=== PATIENT | female | born 1990 | race Caucasian/White ===

== ENCOUNTER → 2017-08-14 | Outpatient (REF) | payer OTHER | LOC: M SFHCLERA 16:05 | DX: R10.9 Unspecified abdominal pain (principal) ==

== ENCOUNTER 2017-08-15 21:17 | Emergency (ER) | payer OTHER ==
[2017-08-15] MEDS: NS 1,000 ML IV (22:43)
[2017-08-15 22:48] LABS: CONTROL LINE UCG INT CTR LINE PRESENT; URINE PREG TEST NEGATIVE (NEGATIVE)
[2017-08-15 22:52] LABS: KETONE, URINE AUTO RFX TRACE mg/dL (NEGATIVE); LEUKOCYTE ESTERASE UR AUTO RFX NEGATIVE (NEGATIVE); MUCUS, URINE RFX SMALL (NEGATIVE); NITRITE, URINE AUTO RFX NEGATIVE (NEGATIVE); RBC, URINE AUTO RFX TNTC /HPF (0-3); SPECIFIC GRAVITY UR AUTO RFX 1.019 (1.002-1.035); SQUAM EPITHELIAL CELL UR AURFX 5 /HPF (0-6); WBC, URINE AUTO RFX 12 /HPF (0-3)
[2017-08-15 23:14] LABS: BASO # 0.1 10^3/uL (0.0-0.2); BASO % 0.5 % (0.0-1.0); EOS # 0.1 10^3/uL (0.0-0.50); EOS % 0.4 % (0.0-3.0); HEMATOCRIT 38.8 % (36.0-47.0); HEMOGLOBIN 13.3 g/dl (12.0-15.5); IMMATURE GRANULOCYTE % 0.5 % (0-3.0); LYMPH # 2.5 10^3/uL (1.5-6.5); LYMPH % 16.8 % (24.0-44.0); MEAN CORPUSCULAR HEMOGLOBIN 31.7 pg (27.0-33.0); MEAN CORPUSCULAR HGB CONC 34.3 g/dl (32.0-36.5); MEAN CORPUSCULAR VOLUME 92.6 fl (80.0-96.0); MONO # 1.4 10^3/uL (0.0-0.8); MONO % 9.6 % (0.0-5.0); NEUTROPHILS # 10.6 10^3/uL (1.8-7.7); NEUTROPHILS % 72.2 % (36.0-66.0); PLATELET COUNT, AUTOMATED 198 10^3/uL (150-450); RED BLOOD COUNT 4.19 10^6/uL (4.00-5.40); RED CELL DISTRIBUTION WIDTH 12.9 % (11.5-14.5); WHITE BLOOD COUNT 14.7 10^3/uL (4.0-10.0)
[2017-08-15 23:49] LABS: ALT/SGPT 52 U/L (12-78); ANION GAP 7 MEQ/L (8-16); BLOOD UREA NITROGEN 8 MG/DL (7-18); CALCIUM LEVEL 8.3 MG/DL (8.5-10.1); CARBON DIOXIDE LEVEL 28 MEQ/L (21-32); CHLORIDE LEVEL 104 MEQ/L (98-107); GLOMERULAR FILTRATION RATE > 60.0 (>60); GLUCOSE, FASTING 131 MG/DL (70-100); POTASSIUM SERUM 3.6 MEQ/L (3.5-5.1); SODIUM LEVEL 139 MEQ/L (136-145)
[2017-08-15 23:50] LABS: ALBUMIN 3.3 GM/DL (3.2-5.2); ALBUMIN/GLOBULIN RATIO 0.92 (1.00-1.93); AMYLASE 22 U/L (25-115); BILIRUBIN,DIRECT 0.2 MG/DL (0.0-0.2); BILIRUBIN,TOTAL 0.8 MG/DL (0.2-1.0); LIPASE 84 U/L (73-393); TOTAL PROTEIN 6.9 GM/DL (6.4-8.2)
[2017-08-15 23:51] LABS: ALKALINE PHOSPHATASE 82 U/L (45-117)
[2017-08-15 23:59] LABS: AST/SGOT 21 U/L (7-37)
[2017-08-16] MEDS ORDERED: ISOVUE-370 76% 100ML VIAL (Q9967) As Ordered (00:10)
== END 2017-08-16 01:19 | disposition home or self-care (01) ==
LOC: M ED 08-16 01:19
DX: N83.201 Unspecified ovarian cyst, right side (principal)
CPT/HCPCS: Q9967

== ENCOUNTER → 2017-09-10 | Outpatient (CLI) | payer OTHER ==
[~2017-09-10] MED LIST: PROHANCE 279.3MG/ML 15ML VIAL (A9576) As Ordered; PROHANCE 279.3MG/ML 5ML VIAL (A9576) As Ordered
== END ==
LOC: M RAD 17:13
DX: N83.9 Noninflammatory disorder of ovary, fallopian tube and broad ligament, unspecified (principal)

== ENCOUNTER → 2017-10-18 | Outpatient (CLI) | payer OTHER | LOC: M SLEEP 19:44 | DX: G47.33 Obstructive sleep apnea (adult) (pediatric) (principal) | CPT/HCPCS: 95810 ==

== ENCOUNTER → 2017-11-14 | Outpatient (CLI) | payer OTHER | LOC: M SLEEP 20:00 | DX: G47.33 Obstructive sleep apnea (adult) (pediatric) (principal) | CPT/HCPCS: 95811 ==

== ENCOUNTER 2017-11-17 06:39 | Day surgery (SDC) | payer OTHER ==
[~2017-11-17 06:39] MED LIST changes: +LIDOCAINE 1% MDV 20ML VIAL SQ; -PROHANCE 279.3MG/ML 15ML VIAL (A9576) As Ordered; -PROHANCE 279.3MG/ML 5ML VIAL (A9576) As Ordered
[2017-11-17 07:10] LABS: HEMATOCRIT 43.8 % (36.0-47.0); HEMOGLOBIN 14.4 g/dl (12.0-15.5); MEAN CORPUSCULAR HEMOGLOBIN 30.9 pg (27.0-33.0); MEAN CORPUSCULAR HGB CONC 32.9 g/dl (32.0-36.5); PLATELET COUNT, AUTOMATED 223 10^3/uL (150-450); RED BLOOD COUNT 4.66 10^6/uL (4.00-5.40); RED CELL DISTRIBUTION WIDTH 12.6 % (11.5-14.5); WHITE BLOOD COUNT 5.9 10^3/uL (4.0-10.0)
[2017-11-17] MEDS: BUPIVACAINE HCL 0.5% 10 ML VIAL As Ordered (07:10)
[2017-11-17] MEDS: ACETAMINOPHEN 650 MG SUPP As Ordered (07:11)
[2017-11-17] MEDS ORDERED: PROPOFOL 200 MG/20 ML VIAL As Ordered ×2 (07:17→08:45)
[2017-11-17] MEDS ORDERED: LIDOCAINE 2% INJ 100 MG/5 ML SDV (FOR ANES.) As Ordered (07:17)
[2017-11-17] MEDS ORDERED: ONDANSETRON 4MG/2ML VIAL (J2405) As Ordered (07:17)
[2017-11-17] MEDS ORDERED: ROCURONIUM BROMIDE 50 MG/5 ML VIAL As Ordered (07:17)
[2017-11-17] MEDS ORDERED: dexameTHASONE 4 MG/ML 1ML VIAL (J1100) As Ordered (07:17)
[2017-11-17] MEDS ORDERED: MIDAZOLAM INJ 2 MG/2 ML VIAL (J2250) As Ordered (07:18)
[2017-11-17] MEDS ORDERED: fentaNYL 250 MCG/5 ML INJECTION (J3010) As Ordered (07:18)
[2017-11-17 07:30] LABS: ESTIMATED AVERAGE GLUCOSE 131 MG/DL (60-110); HEMOGLOBIN A1c 6.2 %
[2017-11-17 07:51] LABS: ALBUMIN 3.6 GM/DL (3.2-5.2); ALBUMIN/GLOBULIN RATIO 1.03 (1.00-1.93); ALKALINE PHOSPHATASE 83 U/L (45-117); ALT/SGPT 115 U/L (12-78); ANION GAP 11 MEQ/L (8-16); AST/SGOT 60 U/L (7-37); BILIRUBIN,TOTAL 0.3 MG/DL (0.2-1.0); BLOOD UREA NITROGEN 7 MG/DL (7-18); CALCIUM LEVEL 8.8 MG/DL (8.5-10.1); CARBON DIOXIDE LEVEL 26 MEQ/L (21-32); CHLORIDE LEVEL 107 MEQ/L (98-107); CREATININE FOR GFR 0.62 MG/DL (0.55-1.30); GLOMERULAR FILTRATION RATE > 60.0 (>60); GLUCOSE, FASTING 97 MG/DL (70-100); HCG, SERUM QUANTITATIVE < 1.0 MIU/ML; POTASSIUM SERUM 3.8 MEQ/L (3.5-5.1); SODIUM LEVEL 144 MEQ/L (136-145); TOTAL PROTEIN 7.1 GM/DL (6.4-8.2)
[2017-11-17] MEDS: LR 1,000 ML IV (07:58)
[2017-11-17] MEDS: metroNIDAZOLE 500 MG in APPROPRIATE DILUENT 1 EA IV ×2 (08:00→08:30)
[2017-11-17] MEDS ORDERED: SODIUM CHLORIDE 0.9% 1000ML IV (08:00)
[2017-11-17] MEDS ORDERED: NS 1,000 ML IV (08:00)
[2017-11-17] MEDS ORDERED: METRONIDAZOLE IV (08:00)
[2017-11-17] MEDS ORDERED: DILUENT IV (08:00)
[2017-11-17] MEDS ORDERED: SUCCINYLCHOLINE 100 MG/5 ML SYRINGE (J0330) As Ordered (08:45)
[2017-11-17] MEDS ORDERED: fentaNYL 100 MCG/2 ML INJECTION (J3010) IV (09:00)
[2017-11-17] MEDS ORDERED: LR 1,000 ML IV (09:00)
[2017-11-17] MEDS ORDERED: ONDANSETRON 4MG/2ML VIAL (J2405) IV (09:00)
[2017-11-17] MEDS ORDERED: GLYCOPYRROLATE INJ 0.2 MG/ML 2 ML VIAL As Ordered (10:17)
== END 2017-11-17 10:10 | disposition home or self-care (01) ==
LOC: M OR 06:39 → M SDC 06:39
DX: E28.2 Polycystic ovarian syndrome (principal); Z53.8 Procedure and treatment not carried out for other reasons; N83.209 Unspecified ovarian cyst, unspecified side; G47.33 Obstructive sleep apnea (adult) (pediatric); E66.01 Morbid (severe) obesity due to excess calories; E03.9 Hypothyroidism, unspecified; M54.9 Dorsalgia, unspecified; R06.83 Snoring; R73.09 Other abnormal glucose; R94.6 Abnormal results of thyroid function studies; Z68.42 Body mass index [BMI] 45.0-49.9, adult
CPT/HCPCS: 49000